=== PATIENT | male | born 1990 | race Caucasian/White ===

== ENCOUNTER 2020-01-22 14:30 | Emergency (ER) | payer SELFPAY ==
--- NOTE | ~2020-01-22 | XR_ITS ---
EXAMINATION: XR chest 2V DATE: 01/22/2020 15:21 INDICATION: Chest pain and cough TECHNIQUE: PA and lateral views of the chest are obtained. COMPARISON: None available FINDINGS: There is subtle airspace opacity left lung base. There is no pleural effusion or pneumothor ax. The cardiomediastinal silhouette is normal. The visualized bones and soft tissues are unremarkabl e. IMPRESSION: 1. Subtle airspace opacity of the left lung base, likely infectious or inflammatory. Reviewed, dictated and finalized at location A. IMPRESSION: 1. Subtle airspace opacity of the left lung base, likely infectious or inflamma tory.
[2020-01-22 14:35] VITALS: BP 113/75; PULSE 82; RESP 16; TEMP 36.3; O2SAT 99
--- NOTE | 2020-01-22 14:41 | ED.CHESTPAIN ---
HPI - Chest Pain General Chief Complaint: Chest Pain Stated Complaint: chest pain Time Seen by Provider: 01/22/20 14:32 Source: patient Mode of arrival: ambulatory Limitations: no limitations History of Present Illness HPI narrative: A 29 y/o male presents to the ED with c/o left sided CP that radiates to his back. Pt states that the left sided CP started 1 month ago, but progressively worsened 1 week ago. He notes that he went to [place] and he had a chest X-Ray done, but was not prescribed any medication. The CP is worsened with movement and deep breaths. He adds that the CP is a pinching feeling, and is a pressure with deep breaths. Pt reports nonproductive cough, but denies fever, chills, sweats, SOB, BLE pain, BLE edema, sore throat, rhinorrhea, and N/V/D. He did not take any pain medication prior to his ED visit. complaint: chest pain (left sided) Onset (ago): month(s) (1) Timing of current episode: constant and increasing (1 week ago) Pain location: left chest Pain radiation: back Quality: other (pinching, pressure) Exacerbating factors: inspiration and movement Associated symptoms: cough (nonproductive) Treatment prior to arrival: none Related Data Allergies Allergy/AdvReac Type Severity Reaction Status Date / Time No Known Allergies Allergy Mild Unverified 05/11/17 20:17 Review of Systems Review of Systems: All systems reviewed & are unremarkable except as noted in HPI and below Constitutional: Constitutional: Denies chills, Denies fever(s) and Denies other (sweats) ENT: Denies nasal discharge and Denies sore throat Cardiovascular: Cardiovascular: Reports chest pain (left sided that radiates to back) and Denies leg edema (bilateral) Respiratory: Respiratory: Reports cough (nonproductive) and Denies dyspnea Gastrointestinal: Gastrointestinal: Denies diarrhea, Denies nausea and Denies vomiting Musculoskeletal: Musculoskeletal: Denies other (BLE pain) PMFSH Past Medical History Medical History (Updated 01/22/20 @ 17:28 by Wen Larkin MD) Healthy adult Surgical History Surgical History (Updated 01/22/20 @ 14:45 by Yaquelin Blevins) No pertinent past surgical history Social History Social History (Updated 01/22/20 @ 14:45 by Yaquelin Blevins) Smoking packs per day: 1 Smoking cigarettes per day: 20.0 Smoking status: Former smoker Tobacco type: cigarettes Second hand tobacco smoke exposure: Yes Smoking end date: 01/15/20 Alcohol intake: former Substance use: never Gender identity (if verbalized by the patient): Male Exam Const: General: cooperative, no acute distress and alert Nutritional Appearance: well nourished Orientation/consciousness: patient oriented x3 Limitations: no limitations HENMT: Mouth: Yes lip normal and Yes moist mucous membranes Resp: Effort & Inspection: normal respiratory effort Auscultation: clear to auscultation bilaterally Cardio: Rate: regular rate Rhythm: regular rhythm GI: GI Palp: Yes Soft to palpation and No Tenderness to palpation present (GI) Auscultation: normal bowel sounds Skin: General skin exam: normal color Neuro: General: patient oriented x3 Cognition (Neuro): normal cognition Speech: normal speech Extrem: General: normal to inspection, full ROM and no clubbing, cyanosis or edema Psych: Mental Status: mental status grossly normal Affect: normal affect Attitude: cooperative Course Course Emergency Course: Patient with findings questionable for pneumonia on chest x-ray. Will treat with azithromycin and discharge home. Patient will be treated with NSAIDs for pleuritic pain. Vital Signs Vital signs: Vital Signs Temperature 97.3 F L 01/22/20 14:35 Pulse Rate 82 01/22/20 14:35 Respiratory Rate 16 01/22/20 14:35 Blood Pressure 113/75 01/22/20 14:35 Pulse Oximetry 99 01/22/20 14:35 Temperature 97.3 F L 01/22/20 14:35 Pulse Rate 84 01/22/20 14:44 Respiratory Rate 16 01/22/20 14:35 Blood Press
[2020-01-22 14:44] VITALS: PULSE 84; O2SAT 100
--- NOTE | 2020-01-22 14:49 | ECG_ITS ---
Measurements Intervals [place] Rate: 78 P: 29 TN: 156 QRS: 28 QRSD: 90 T: 30 QT: 341 QTc: 391 Interpretive Statements SINUS RHYTHM BASELINE ARTIFACT- I, II, III, AVR, AVL, AVF NORMAL ECG Electronically Signed On 01-22-2020 14:51:14 CDT by Ephraim Peck D.O.
[2020-01-22 14:58] LABS: Basophils Percent Auto 0.4 % (0.2-1.2); Eosinophils Absolute Auto 0.2 K/mm3 (0-0.3); Eosinophils Percent Auto 2.1 % (0-4.4); Hematocrit 42.5 % (42.0-52.0); Hemoglobin 14.9 g/dL (14.0-18.0); Immature Granulocyte Absolute 0.01 K/mm3 (0.00-0.031); Immature Granulocyte Percent A 0.1 % (0-0.5); Lymphocytes Absolute Auto 2.74 K/mm3 (0.9-3.2); Lymphocytes Percent Auto 32.3 % (18.3-44.2); Mean Corpuscular HGB Conc 35.1 g/dl (32-36); Mean Corpuscular Hemoglobin 30.2 pg (26-34); Mean Corpuscular Volume 86.2 fl (80-100); Mean Platelet Volume 10.5 fl (7.4-10.4); Monocytes Absolute Auto 0.7 K/mm3 (0.1-0.6); Neutrophils Absolute Auto 4.9 K/mm3 (1.3-6.7); Neutrophils Percent Auto 57.1 % (45.5-73.1); Platelet Count Result 244 k/mm3 (150-375); Red Blood Count 4.93 M/mm3 (4.6-6.20); Red Cell Distribution Width 11.7 % (11.5-14.5); White Blood Count 8.5 K/mm3 (4.5-10.0)
[2020-01-22] MEDS: KETOROLAC 30 MG/ML VIAL (*BKC) IV PUSH (15:09)
[2020-01-22 15:10] LABS: Alanine Aminotransferase 24 U/L (4-50); Albumin Level 4.3 g/dL (3.5-5.1); Alkaline Phosphatase 74 U/L (38-126); Aspartate Amino Transferase 31 U/L (17-59); Bilirubin,Total 0.6 mg/dL (0.2-1.3); Blood Urea Nitrogen 13 mg/dL (9-20); Calcium 8.9 mg/dL (8.4-10.2); Carbon Dioxide 24 mmol/L (22-30); Chloride 107 mmol/L (98-107); D Dimer 0.31 ug/mL (<0.48); Estimated Glomerular Filt Rate > 60; Glucose 123 mg/dL (75-110); Sodium 138 mmol/L (137-145)
[2020-01-22 15:22] LABS: Troponin I < 0.012 ng/mL (0.000-0.034)
--- NOTE | 2020-01-22 17:37 | PC.NURSE ---
This RN walked into patient's room, patient states I pulled my own IV out, and now I have this bump. I googled it and it didn't say to hold pressure on it. Pt's hand is bruised where IV was inserted.
[2020-01-22 17:39] VITALS: BP 115/67; PULSE 82; RESP 17; O2SAT 100
== END 2020-01-22 17:42 | disposition home or self-care (01) ==
PROVIDERS: Emergency Provider Emergency Medicine
DX: J18.1 Lobar pneumonia, unspecified organism (principal); R07.81 Pleurodynia; Z87.891 Personal history of nicotine dependence
CPT/HCPCS: 36415; 71046; 80053; 84484; 85025; 85380; 87804; 93005; 96374; 99284; J1885

== ENCOUNTER 2020-01-25 21:07 | Emergency (ER) | payer SELFPAY ==
--- NOTE | ~2020-01-25 | XR_ITS ---
EXAMINATION: XR chest 2V DATE: 01/25/2020 21:34 INDICATION: Chest pain. Cough. Left neck pain. Upper back pain. TECHNIQUE: Frontal and lateral views of the chest were obtained. COMPARISON: Chest 2 views 01/22/2020 FINDINGS: The chest demonstrates clear lungs without pneumonia, pleural effusion, or pneumothorax. Th e heart size is normal. IMPRESSION: 1. No acute cardiopulmonary disease. Reviewed, dictated and finalized at location A.
--- NOTE | 2020-01-25 21:16 | ED.RECABL ---
HPI - Recheck/Abnormal Lab/Rx General Chief Complaint: Recheck/Abnormal Lab/Rx Stated Complaint: worsening cp, back pain, cough Time Seen by Provider: 01/25/20 21:14 Source: patient Mode of arrival: ambulatory Limitations: no limitations History of Present Illness HPI narrative: A 29 y/o male pt has arrived at the ED with c/o constant lt sided CP that radiates to his lt shoulder, back, and jaw for a month. Pt states that he was at the ED last week and was told he had pneumonia and received antibiotics for 5 days. He however believes that his pneumonia is getting worse. He denies N/V/D, sore throat, fever, chills, ear aches, rhinorrhea, or sneezing. He states that he has had a cough for the past month. He reports that nothing alleviates his pain, but that leaning to a certain side increases his back and chest pain. 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 complaint: other (CP) Initial visit (ago): week(s) (1) Initial visit for: other (CP) Returns today for: other (worsening CP) Symptoms since prior visit: worsening pain Associated symptoms: other (cough) Treatments prior to arrival: other (antibiotics for 5 days) Related Data Allergies Allergy/AdvReac Type Severity Reaction Status Date / Time No Known Allergies Allergy Mild Verified 01/25/20 21:23 Review of Systems Review of Systems: All systems reviewed & are unremarkable except as noted in HPI and below Constitutional: Constitutional: Denies chills and Denies fever(s) ENT: Denies otalgia, Denies sore throat and Denies other (rhinorrhea, sneezing) Cardiovascular: Cardiovascular: Reports chest pain (lt sided ) Respiratory: Respiratory: Reports cough (1 month) Gastrointestinal: Gastrointestinal: Denies diarrhea, Denies nausea and Denies vomiting Musculoskeletal: Musculoskeletal: Reports back pain and Reports other (lt shoulder pain) [facility] Past Medical History Medical History (Updated 01/25/20 @ 22:07 by Gregg Palomares) Healthy adult No pertinent past medical history Surgical History Surgical History No pertinent past surgical history Social History Social History Smoking packs per day: 1 Smoking cigarettes per day: 20.0 Smoking status: Former smoker Tobacco type: cigarettes Second hand tobacco smoke exposure: Yes Smoking end date: 01/15/20 Alcohol intake: former Substance use: never Gender identity (if verbalized by the patient): Male Exam Narrative: Exam Narrative: General appearance: Well-developed, well-nourished Skin: Normal color Head: Normocephalic, nontraumatic Eyes: Clear conjunctiva ENT: Oropharynx normal, ears normal, nose normal Neck: Supple, nontender Chest and respiratory: Airway patent, no respiratory distress, no accessory muscle use Heart: Regular rate/rhythm Abdomen: Soft, nontender, no organomegaly, quiet bowel sounds Vascular: Normal peripheral pulses, normal capillary refill. Musculoskeletal: Normal range of motion, nontender back Neurologic: Alert and oriented ?3, [employer] is normal as tested, no gross motor deficit Course Course Emergency Course: Stable Vital Signs Vital signs: Vital Signs Temperature 36.6 C 01/25/20 21:17 Pulse Rate 73 01/25/20 21:17 Respiratory Rate 18 01/25/20 21:17 Blood Pressure 140/85 01/25/20 21:17 Pulse Oximetry 100 01/25/20 21:17 Temperature 36.6 C 01/25/20 21:17 Pulse Rate 73 01/25/20 21:17 Respiratory Rate 18 01/25/20 21:17 Blood Pressure 140/85 01/25/20 21:17 Pulse Oximetry 100 01/25/20 21:17 MDM - Recheck/Abnormal
[2020-01-25 21:17] VITALS: BP 140/85; PULSE 73; RESP 18; TEMP 36.6; O2SAT 100
--- NOTE | 2020-01-25 21:17 | ECG_ITS ---
Measurements Intervals [place] Rate: 81 P: 17 VT: 156 QRS: 21 QRSD: 101 T: 17 QT: 330 QTc: 383 Interpretive Statements SINUS RHYTHM ST ELEVATION IN ANTEROLAT/LAT LEADS- PROBABLY EARLY REPOLARIZATION BASELINE ARTIFACT- I, II, III, AVR, AVL, V1 BORDERLINE ECG Electronically Signed On 01-26-2020 11:20:56 CDT by Ephraim Peck D.O.
[2020-01-25 21:34] LABS: Basophils Percent Auto 0.4 % (0.2-1.2); Eosinophils Absolute Auto 0.1 K/mm3 (0-0.3); Eosinophils Percent Auto 1.4 % (0-4.4); Hematocrit 46.4 % (42.0-52.0); Immature Granulocyte Absolute 0.01 K/mm3 (0.00-0.031); Immature Granulocyte Percent A 0.1 % (0-0.5); Lymphocytes Absolute Auto 3.97 K/mm3 (0.9-3.2); Lymphocytes Percent Auto 42.7 % (18.3-44.2); Mean Corpuscular HGB Conc 34.5 g/dl (32-36); Mean Corpuscular Volume 87.1 fl (80-100); Mean Platelet Volume 10.3 fl (7.4-10.4); Monocytes Absolute Auto 0.9 K/mm3 (0.1-0.6); Monocytes Percent Auto 9.1 % (2.6-8.5); Neutrophils Absolute Auto 4.3 K/mm3 (1.3-6.7); Neutrophils Percent Auto 46.3 % (45.5-73.1); Platelet Count Result 262 k/mm3 (150-375); Red Blood Count 5.33 M/mm3 (4.6-6.20); Red Cell Distribution Width 11.7 % (11.5-14.5); White Blood Count 9.3 K/mm3 (4.5-10.0)
[2020-01-25 21:45] LABS: Blood Urea Nitrogen 13 mg/dL (9-20); Calcium 9.6 mg/dL (8.4-10.2); Carbon Dioxide 28 mmol/L (22-30); Chloride 103 mmol/L (98-107); Estimated CRCL calculation 120 ml/min; Estimated Glomerular Filt Rate > 60; Glucose 91 mg/dL (75-110); Potassium 4.1 mmol/L (3.4-5.0); Sodium 139 mmol/L (137-145)
[2020-01-25 21:48] LABS: INR 0.9; Partial Thromboplastin Time 26.2 SECONDS (22.3-36.8); Prothrombin Time 11.7 Seconds (11.1-14.7)
[2020-01-25 21:57] LABS: Troponin I < 0.012 ng/mL (0.000-0.034)
[2020-01-25 21:58] VITALS: BP 124/79; PULSE 98; RESP 14; O2SAT 98
== END 2020-01-25 22:22 | disposition home or self-care (01) ==
PROVIDERS: Emergency Provider Emergency Medicine
DX: R07.9 Chest pain, unspecified (principal); Z87.891 Personal history of nicotine dependence; R94.31 Abnormal electrocardiogram [ECG] [EKG]
CPT/HCPCS: 36415; 71046; 80048; 84484; 85025; 85610; 85730; 93005; 99284

== ENCOUNTER 2020-02-19 19:19 | Emergency (ER) | payer OTHER, SELFPAY ==
--- NOTE | ~2020-02-19 | CT_ITS ---
EXAMINATION: CTA chest PE protocol DATE: 02/19/2020 20:17 INDICATION: Chest and back pain. TECHNIQUE: Computed tomography (CT) pulmonary angiogram of the chest was performed with 100 mL Omnipa que-350 intravenous contrast. Additional 3D reconstructions utilizing coronal maximum intensity proje ction (MIP) were performed. Automated exposure control and iterative reconstruction technique were em ployed. The dose-length product was 518.75 mGy-cm. COMPARISON: None FINDINGS: Excellent contrast opacification of the pulmonary arteries. There is mild streak artifact from dense contrast in the superior vena cava and right atrium. Normal scattered respiratory motion artifact mos t prominent in the left infrahilar region and mildly decreases sensitivity and specificity. No pulmon kevin embolism. Lungs are clear with no pneumonia, pulmonary edema or other pulmonary infiltrates, pleu ral effusion or pneumothorax. Heart size is normal. No pericardial effusion. Thoracic aorta is normal in caliber with no dissection. Small amount of residual thymic tissue interspersed with fat the ante rior mediastinum. No pathologically enlarged thoracic lymphadenopathy. Was utilized upper abdomen is unremarkable. Mild thoracic spondylosis. IMPRESSION: 1. No pulmonary embolism or other acute cardiopulmonary disease. Reviewed, dictated and finalized at location A.
[2020-02-19 19:24] VITALS: BP 150/83; PULSE 89; RESP 20; TEMP 37.1; O2SAT 98
--- NOTE | 2020-02-19 19:44 | ED.URI ---
HPI - URI/Sore Throat General Chief Complaint: Upper Respiratory Infection Stated Complaint: chest/back pain Time Seen by Provider: 02/19/20 19:39 History of Present Illness HPI Narrative: Patient presents with his girlfriend for 4 months of mid chest pain and mid back pain. He has been diagnosed with bronchitis pneumonia and musculoskeletal. He has had previous chest x-rays but no CAT scan. He continues to smoke. He gauges the pain 6 out of 10. Worse with a deep breath, he denies fever chills or sweats. 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 He has not tried either ibuprofen or Tylenol for his mid back pain. Related Data Allergies Allergy/AdvReac Type Severity Reaction Status Date / Time No Known Allergies Allergy Mild Verified 02/19/20 19:28 Review of Systems Review of Systems: Narrative: CONSTITUTIONAL: Denies fever, chills, or sweats. EYES: Denies visual changes, redness, or discharge. ENT: Denies rhinorrhea, congestion, sore throat, or otalgia. CARDIOVASCULAR: Denies palpitations, or edema. RESPIRATORY: Denies cough or dyspnea. GASTROINTESTINAL: Denies abdominal pain, nausea, vomiting, or diarrhea. GENITOURINARY: Denies dysuria or hematuria. SKIN: Denies rash or itching. MUSCULOSKELETAL: Denies back pain, joint pain, or myalgia. NEUROLOGIC: Denies headache, numbness, or weakness. PSYCHIATRIC: Denies anxiety or depression. 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 HEAD: Normocephalic, atraumatic. EYES: PERRLA and EOMI. ENT: Nares clear, no rhinorrhea or epistaxis. Mucous membranes moist. NECK: Supple. CHEST: Clear to auscultation. No respiratory distress. HEART: Regular rate and rhythm. No murmur heard. Normal peripheral pulses. ABDOMEN: Soft, nontender, nondistended, normal active bowel sounds. EXTREMITIES: Normal range of motion. No edema. SKIN: Warm, dry, no rash. NEURO: No focal deficits. Alert and oriented x3. PSYCH: Normal mood and affect. Const: General: no acute distress and alert Orientation/consciousness: patient oriented x3 HENMT: Head: normal to inspection Eyes: Conjunctivae: conjunctivae normal Pupils: Equal, round and reactive pupils present EOM: EOMs intact bilaterally Course Reevaluation(s) Reevaluation #1: Start bathroom to tell Ros[place] that his CAT scan came back normal, and that I was not sure why he was having this ongoing chest and back pain. He was unsatisfied with that response, and I recommended that he follow-up with the primary care physician that I was going to assign him to. He came to the desk to do the discharge papers and the nurses tell me that they had walked out upset. Date: 02/19/20 Time: 21:56 Vital Signs Vital signs: Vital Signs Temperature 98.8 F 02/19/20 19:24 Pulse Rate 89 02/19/20 19:24 Respiratory Rate 20 02/19/20 19:24 Blood Pressure 150/83 H 02/19/20 19:24 Pulse Oximetry 98 02/19/20 19:24 Temperature 98.8 F 02/19/20 19:24 Pulse Rate 89 02/19/20 19:24 Respiratory Rate 20 02/19/20 19:24 Blood Pressure 150/83 H 02/19/20 19:24 Pulse Oximetry 98 02/19/20 19:24 MDM - URI/Sore Throat Lab Data Result diagrams: 02/19/20 20:10 Labs: Lab Results 02/19/20 Range/Units 20:10 Creatinine 1.10 (0.8-1.5) mg/dL Estim Creat Clear Calc 99 ml/
[2020-02-19 20:12] LABS: Estimated CRCL calculation 99 ml/min; Estimated Glomerular Filt Rate > 60
--- NOTE | 2020-02-19 20:35 | ECG_ITS ---
Measurements Intervals [place] Rate: 82 P: 31 NC: 153 QRS: 38 QRSD: 94 T: 29 QT: 330 QTc: 387 Interpretive Statements SINUS RHYTHM ST ELEVATION IN DIFFUSE LEADS- PROBABLY EARLY REPOLARIZATION BASELINE ARTIFACT- II, III, AVF BORDERLINE ECG Electronically Signed On 02-20-2020 7:11:29 CDT by Ephraim Peck D.O.
--- NOTE | 2020-02-19 21:50 | PC.NURSE ---
went to discharge pt and pt and visitor were not in room. evidence of IV being removed was not found, Charge nurse aware, PD called to be notified
== END 2020-02-19 21:55 | disposition home or self-care (01) ==
PROVIDERS: Emergency Provider Emergency Medicine
DX: R07.9 Chest pain, unspecified (principal); G89.29 Other chronic pain; M54.6 Pain in thoracic spine; Z87.891 Personal history of nicotine dependence; Z77.22 Contact with and (suspected) exposure to environmental tobacco smoke (acute) (chronic)
CPT/HCPCS: 36415; 71275; 93005; 99284; Q9967